=== PATIENT | male | born 1980 | race Caucasian/White ===

== ENCOUNTER 2016-11-18 09:40 | Emergency (ER) | payer OTHER ==
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
[2016-11-18] MEDS ORDERED: IOPAMIDOL (ISOVUE-300) 100 ML BTL IV ONE (10:13)
[2016-11-18 10:22] VITALS: RESP 18; TEMP 97.7
[2016-11-18] MEDS ORDERED: KETOROLAC 30 MG/1 ML SDV IVP ONE (10:41)
[2016-11-18 12:00] VITALS: BP 131/86; PULSE 87; O2SAT 95
== END 2016-11-18 11:59 | disposition home or self-care (01) ==
DX: S22.42XA Multiple fractures of ribs, left side, initial encounter for closed fracture (principal); V19.40XA Pedal cycle driver injured in collision with unspecified motor vehicles in traffic accident, initial encounter; Y92.410 Unspecified street and highway as the place of occurrence of the external cause; Y99.8 Other external cause status; Y93.89 Activity, other specified
CPT/HCPCS: 82947-QW; 96374; J1885; Q9967